=== PATIENT | male | born 1945 | race African-American/Black ===

== ENCOUNTER 2021-07-28 12:16 | Inpatient (IN) | payer BC, MEDICARE ==
[~2021-07-28] VITALS: Ht 180.3 cm; Wt 107.0 kg
[~2021-07-28 12:16] MED LIST: AMLO2.5T45 PO; ASPI-1497 PO; ATOR20TA65 PO; BENA20TA10 PO; BENA40TA9 PO; CARV6.2548 PO; CLOP75TA33 PO; HYDR25TA PO; SENN-22 PO; TOPUD PO
[2021-07-28 13:15] LABS: CHLORIDE 110 mEq/L (98-107)
[2021-07-28 15:35] LABS: BASOPHILS % 1.2 % (0.0-2.0); EOSINOPHILS % 4.4 % (0.0-5.0); HEMATOCRIT. 38.5 % (42.0-52.0); HEMOGLOBIN. 12.3 g/dL (14.0-18.0); LYMPHOCYTES % 21.4 % (20.0-50.0); MEAN CORPUSCULAR HEMOGLOBIN 29.5 pg (28.0-32.0); MEAN CORPUSCULAR VOLUME 92.4 fL (80.0-94.0); PLATELET 381 x1000/uL (130-400); RED BLOOD CELL COUNT 4.17 mill/uL (4.7-6.1); RED CELL DISTRIBUTION WIDTH 13.7 % (11.6-14.6)
[2021-07-28] MEDS: AMLODIPINE 10MG TABLET PO SCH (15:57)
[2021-07-28] MEDS ORDERED: ENOXAPARIN 80MG/0.8ML SYR SUBCUT NR (16:00)
[2021-07-28 16:14] LABS: CLARITY URINE CLEAR (CLEAR); COLOR URINE YELLOW (YELLOW); KETONES URINE NEGATIVE (NEGATIVE); LEUKOCYTE ESTERASE URINE NEGATIVE (NEGATIVE); NITRITE URINE NEGATIVE (NEGATIVE); OCCULT BLOOD URINE NEGATIVE (NEGATIVE); PROTEIN URINE NEGATIVE (NEGATIVE); SPECIFIC GRAVITY URINE 1.012 (1.005-1.030); UROBILINOGEN URINE 0.2 E.U./dL (0.2-1.0)
[2021-07-28 16:29] LABS: *AMPHETAMINES SCREEN URINE NEGATIVE (NEGATIVE); *BARBITURATES SCREEN URINE NEGATIVE (NEGATIVE); *BENZODIAZEPINES SCREEN URINE NEGATIVE (NEGATIVE)
[2021-07-28 16:30] LABS: *COCAINE SCREEN URINE NEGATIVE (NEGATIVE); CANNABINOID URINE SCREEN NEGATIVE (NEGATIVE); OPIATES URINE SCREEN NEGATIVE (NEGATIVE); PHENCYCLIDINE URINE SCREEN NEGATIVE (NEGATIVE)
[2021-07-28 16:32] LABS: METHADONE URINE SCREEN NEGATIVE (NEGATIVE)
[2021-07-28] MEDS: CARVEDILOL 6.25 MG TABLET PO SCH (20:20)
[2021-07-28] MEDS ORDERED: ATORVASTATIN CALCIUM 40MG TABLET PO SCH (21:00)
[2021-07-28 22:00] VITALS: BP 134/65
[2021-07-29] VITALS: BP 104/46
[2021-07-29 04:00] VITALS: BP 127/67
[2021-07-29] MEDS ORDERED: SODIUM CHLORIDE 0.45% 500 ML IV ONE (06:00)
[2021-07-29 08:00] VITALS: BP 138/61
[2021-07-29] MEDS ORDERED: BENAZEPRIL 10MG TABLET PO SCH (09:00)
[2021-07-29] MEDS ORDERED: ASPIRIN 81MG EC TABLET PO SCH (09:00)
[2021-07-29] MEDS ORDERED: HEPARIN SODIUM 1,000 UNIT/1ML VIAL IV ONE (09:06)
[2021-07-29] MEDS ORDERED: NITROGLYCERIN 50MCG/ML 10ML VIAL (CATH LAB) IV ONE (09:06)
[2021-07-29] MEDS ORDERED: NICARDIPINE 100MCG/ML 10ML VIAL (CATH LAB) IV ONE (09:06)
[2021-07-29] MEDS: AMLODIPINE 10MG TABLET PO SCH (09:17)
[2021-07-29] MEDS: CARVEDILOL 6.25 MG TABLET PO SCH (09:17)
[2021-07-29 10:27] LABS: EOSINOPHILS % 4.4 % (0.0-5.0); HEMATOCRIT. 36.9 % (42.0-52.0); LYMPHOCYTES % 22.3 % (20.0-50.0); MEAN CORPUSCULAR HEMOGLOBIN 29.4 pg (28.0-32.0); MEAN CORPUSCULAR VOLUME 90.5 fL (80.0-94.0); MONOCYTES % 12.4 % (2.0-8.0); NEUTROPHILS % 59.9 % (40.0-76.0); PLATELET 334 x1000/uL (130-400); RED BLOOD CELL COUNT 4.07 mill/uL (4.7-6.1); RED CELL DISTRIBUTION WIDTH 13.2 % (11.6-14.6)
[2021-07-29] MEDS ORDERED: ASPIRIN/SOD BICARB/CITRIC ACID 324MG TAB EFF ONE (10:28)
[2021-07-29] MEDS ORDERED: HEPARIN 1000 UNITS/ML 10ML ONE (10:30)
[2021-07-29] MEDS ORDERED: FENTANYL CITRATE/PF 50MCG/ML 5ML VIAL ONE (10:30)
[2021-07-29] MEDS ORDERED: MIDAZOLAM HCL 5 MG/5 ML VIAL ONE (10:30)
[2021-07-29 10:31] LABS: CHLORIDE 110 mEq/L (98-107)
[2021-07-29] MEDS ORDERED: IODIXANOL 320MG/ML 100 ML BOTTLE IV ONE (10:31)
[2021-07-29] MEDS ORDERED: LIDOCAINE HCL 1% 20ML VIAL (Pyxis) INJ ONE (10:31)
[2021-07-29] MEDS ORDERED: MORPHINE SULFATE 2 MG/ML CPJ (NOT FOR IM USE) IV PRN (11:15)
[2021-07-29] MEDS ORDERED: ACETAMINOPHEN 325MG TABLET PO PRN (11:15)
[2021-07-29] MEDS ORDERED: ATROPINE SULFATE 1MG/10ML SYR IV PRN (11:15)
[2021-07-29] MEDS ORDERED: ONDANSETRON HCL 4MG/2ML INJ IV PRN (11:15)
[2021-07-29] MEDS ORDERED: SODIUM CHLORIDE 0.45% 1,000 ML IV ONE (11:15)
[2021-07-30] MEDS ORDERED: CLOPIDOGREL 75MG TABLET PO SCH (09:00)
== END 2021-07-29 15:45 | disposition home or self-care (01) | DRG 287 ==
LOC: ER 12:16 → 7EST 18:08 → EDBEDREQ 18:12 → EDBEDREQTM 18:12 → ENRESERV 21:24
PROVIDERS: ADMIT Internal Medicine; ATTEND Internal Medicine
PROC: 4A023N7 Measurement of Cardiac Sampling and Pressure, Left Heart, Percutaneous Approach (ICD-10-PCS; principal; 2021-07-29)
PROC: B2111ZZ Fluoroscopy of Multiple Coronary Arteries using Low Osmolar Contrast (ICD-10-PCS; 2021-07-29)
PROC: B2151ZZ Fluoroscopy of Left Heart using Low Osmolar Contrast (ICD-10-PCS; 2021-07-29)
DX: R07.9 Chest pain, unspecified (principal); I10 Essential (primary) hypertension; I25.10 Atherosclerotic heart disease of native coronary artery without angina pectoris; E87.5 Hyperkalemia; E87.8 Other disorders of electrolyte and fluid balance, not elsewhere classified; D64.9 Anemia, unspecified; D72.819 Decreased white blood cell count, unspecified; E78.5 Hyperlipidemia, unspecified; Z95.5 Presence of coronary angioplasty implant and graft; Z87.01 Personal history of pneumonia (recurrent); Z79.1 Long term (current) use of non-steroidal anti-inflammatories (NSAID); Z79.899 Other long term (current) drug therapy; Z82.49 Family history of ischemic heart disease and other diseases of the circulatory system; Z83.3 Family history of diabetes mellitus; Z88.7 Allergy status to serum and vaccine; Z88.8 Allergy status to other drugs, medicaments and biological substances; Z79.82 Long term (current) use of aspirin; I25.2 Old myocardial infarction; Z87.891 Personal history of nicotine dependence
CPT/HCPCS: 36415; 71045; 80048; 80053; 80305; 81003; 83880; 84132; 84484; 85025; 93005; 93458; 93970; 99285; C1769; C1893; J1644; J1650; J2250; J3010; J3490; Q9967